=== PATIENT | female | born 2000 | race American Indian/Alaskan Native ===

== ENCOUNTER 2018-05-30 01:12 | Outpatient (CLI) | payer MEDICAID ==
[2018-05-30 02:03] VITALS: BP 127/85
== END 2018-05-30 02:29 | disposition home or self-care (01) ==
LOC: TRG 01:12
PROVIDERS: ATTEND Obstetrics & Gynecology
DX: O47.1 False labor at or after 37 completed weeks of gestation (principal); Z3A.40 40 weeks gestation of pregnancy; Z82.49 Family history of ischemic heart disease and other diseases of the circulatory system
CPT/HCPCS: 59025

== ENCOUNTER 2018-06-03 20:52 | Outpatient (CLI) | payer MEDICAID ==
[2018-06-03 22:55] LABS: Bacteria,Urine 1+ /HPF (Negative); Bilirubin,Urine NEG (Negative); Blood,Urine NEG (Negative); Color,Urine Straw (Yellow); Protein,Urine <15 mg/dL mg/dL (Negative); Urobilinogen,Urine < 2.0 mg/dL (<2.0)
[2018-06-04] MEDS ORDERED: ATARAX PO ONE (00:09)
[2018-06-04] MEDS ORDERED: VISTARIL PO ONE (00:20)
[2018-06-05 10:22] VITALS: BP 141/81
== END 2018-06-04 00:30 | disposition home or self-care (01) ==
LOC: TRG 20:52
PROVIDERS: ATTEND Obstetrics & Gynecology
DX: O62.9 Abnormality of forces of labor, unspecified (principal); Z3A.40 40 weeks gestation of pregnancy
CPT/HCPCS: 59025; 81001; Q0177

== ENCOUNTER 2018-06-05 06:43 | Inpatient (IN) | payer MEDICAID ==
[2018-06-05] MEDS ORDERED: LACTATED RINGERS 1,000 ML IV SCH (08:00)
[2018-06-05] MEDS ORDERED: POLYCILLIN/NS 2 GM/100 ML 2 GM/100 ML BAG IV NR (08:00)
[2018-06-05] MEDS ORDERED: STADOL IV PRN (08:00)
--- NOTE | 2018-06-05 08:14 | History and Physical Report ---
History of Present Illness Date of examination: 06/05/18 Date of admission: 06/05/18 07:28 History of present illness: 18 yo LMP EDC 05/30/18 @ 40.6 weeks gestation presented to triage active labor. First trimester entry at 12 weeks gestation. Uncomplicated course. GBS positive. Past History Past Medical History: no pertinent history Past Surgical History: no surgical history REGISTERED RADIOLOGIC TECHNOLOGIST History: hepatitis C Family/Genetic History: hypertension, stroke Social history: no significant social history, single - Obstetrical History Expected Date of Delivery: 05/30/18 Actual Gestation: 40 Week(s) 6 Day(s) : 2 Para: 0 Number of Living Children: 1 Medications and Allergies Allergies Allergy/AdvReac Type Severity Reaction Status Date / Time No Known Allergies Allergy Verified 06/04/18 00:14 Home Medications Medication Instructions Recorded Confirmed Last Taken Type No Known Home Medications [No 05/30/18 06/05/18 Unknown History Reported Home Medications] Active Meds: Active Medications Butorphanol Tartrate (Stadol) 2 mg IV Q2H PRN PRN Reason: Labor Pain Ampicillin Sodium (Polycillin/Ns 2 Gm/100 Ml) 2 gm in 100 mls @ 100 mls/hr IV ONCE NR Stop: 06/05/18 10:00 Lactated Ringer's (Lactated Ringers) 1,000 mls @ 125 mls/hr IV DIRECT GARRET Ampicillin Sodium (Ampicillin/Ns 1 Gm/50 Ml) 1 gm in 50 mls @ 100 mls/hr IV Q4H GARRET; Protocol Review of Systems All systems: negative - Vital Signs Vital signs: Vital Signs Pulse Pulse Ox 85 100 06/05/18 06:57 06/05/18 06:57 Temp Pulse Resp BP Pulse Ox 98.4 F 83 18 135/88 99 06/05/18 07:20 06/05/18 07:54 06/05/18 07:20 06/05/18 07:53 06/05/18 07:54 - Obstetrical FHR: category 1 Uterine Contraction Monitor Mode: External Results Result Diagrams: 06/05/18 08:00 06/05/18 08:00 All other labs normal. Assessment and Plan A: IUP @ 40.6 weeks Active Labor GBS positive Elevated BP's R/O PIH P: Abx Active yonas't
[2018-06-05 08:24] LABS: Hematocrit 40.5 % (30.3-42.9); Hemoglobin 13.6 gm/dl (10.1-14.3); Mean Corpuscular HGB Conc 34 % (30-34); Mean Corpuscular Hemoglobin 31 pg (28-32); Mean Corpuscular Volume 92 fl (79-97); Platelet Count 287 K/mm3 (140-440); Red Cell Distribution Width 13.7 % (13.2-15.2)
[2018-06-05 08:52] LABS: Bilirubin,Urine NEG (Negative); Blood,Urine NEG (Negative); Color,Urine Yellow (Yellow); Mucus,Urine FEW /HPF
[2018-06-05] MEDS ORDERED: PITOCin/NS 30 UNIT/500ML 30 UNITS/500 ML BAG IV SCH (09:00)
[2018-06-05 09:05] LABS: Alanine Aminotransferase 8 units/L (7-56); Uric Acid 3.6 mg/dL (3.5-7.6)
--- NOTE | 2018-06-05 09:54 | Anesthesia Consultation ---
Anesthesia Consult and Med Hx Date of service: 06/05/18 - Airway Anesthetic Teeth Evaluation: Good ROM Head & Neck: Adequate Mental/Hyoid Distance: Adequate Mallampati Class: Class II Intubation Access Assessment: Probably Good - Pre-Operative Health Status ASA Pre-Surgery Classification: ASA2 Proposed Anesthetic Plan: Epidural, Spinal - Pulmonary Hx Asthma: No COPD: No Hx Pneumonia: No - Cardiovascular System Hx Hypertension: No - Central Nervous System Hx Seizures: No Hx Psychiatric Problems: No - Endocrine Hx Renal Disease: No Hx End Stage Renal Disease: No Hx Hypothyroidism: No Hx Hyperthyroidism: No - Hematic Hx Anemia: No Hx Sickle Cell Disease: No - Other Systems Hx Alcohol Use: No
[2018-06-05] MEDS ORDERED: NARCAN 2 MG/2 ML IV PRN (10:00)
[2018-06-05] MEDS ORDERED: fentaNYL-BUPIV 2 MCG/ML-0.125% 200 MCG/100 ML BAG EPIDURAL SCH (10:00)
[2018-06-05] MEDS ORDERED: ePHEDrine SULFATE IV PRN (10:00)
[2018-06-05] MEDS ORDERED: PITOCin/NS 20 UNIT/1000ML DRIP 20,000 MILLIUNITS/1,000 ML BAG IV ONE (10:21)
[2018-06-05] MEDS ORDERED: PITOCin/NS 20 UNIT/1000ML DRIP 20 UNITS/1,000 ML BAG IV SCH (11:00)
[2018-06-05] MEDS ORDERED: AMPICILLIN/NS 1 GM/50 ML 1 GM/50 ML BAG IV SCH (12:00)
[2018-06-05] MEDS ORDERED: LANSINOH TP PRN (12:38)
[2018-06-05] MEDS ORDERED: TUCKS PAD TP PRN (12:38)
[2018-06-05] MEDS ORDERED: TYLENOL PO PRN (12:38)
[2018-06-05] MEDS ORDERED: PHENERGAN PR PRN (12:38)
[2018-06-05] MEDS ORDERED: PHENERGAN PO PRN (12:38)
[2018-06-05] MEDS ORDERED: BENADRYL PO PRN (12:38)
[2018-06-05] MEDS ORDERED: DULCOLAX PR PRN (12:38)
[2018-06-05] MEDS ORDERED: NORCO 5/325 PO PRN (12:38)
[2018-06-05] MEDS ORDERED: MILK OF MAGNESIA PO PRN (12:38)
--- NOTE | 2018-06-05 12:38 | Procedure Note ---
OB Delivery Note - Delivery Date of Delivery: 06/05/18 (5-15 oz male @ 1216) Surgeon: ALESSANDRO PANCHAL Estimated blood loss: <100cc - Vaginal Delivery presentation: vertex Delivery position: OA Intrapartum events: none Delivery induction: none Delivery monitor: external FHT, external uterine Route of delivery: Delivery placenta: spontaneous Delivery cord: 3 umbilical vessels Episiotomy: none Delivery laceration: none Anesthesia: epidural - Infant A at 1 minute: 8 at 5 minutes: 9 Infant Gender: Male (SROM-meconium fluid. NICU called for delivery. Pushed for viable male. Spont. cry, bulb suctioned and placed skin to skin. GBS positive and adequate treatment. Spont. placenta. Pitocin infusing, fundus firm. bleeding scant. EBL 100cc. no lacerations.)
[2018-06-05] MEDS ORDERED: SODIUM CHLORIDE FLUSH SYRINGE 10 ML IV NR (13:00)
[2018-06-05] MEDS ORDERED: APRESOLINE IV PRN (14:21)
[2018-06-05] MEDS ORDERED: MAGNESIUM SULFATE 4GM/100ML 4 GM/100 ML BAG IV ONE (15:00)
[2018-06-05] MEDS ORDERED: MAGNESIUM SULFATE 40GM/1000ML 40 GM/1,000 ML BAG IV SCH (15:00)
[2018-06-05] MEDS: MOTRIN PO SCH (23:00)
[2018-06-05 23:13] LABS: Hematocrit 39.6 % (30.3-42.9); Hemoglobin 12.9 gm/dl (10.1-14.3); Mean Corpuscular HGB Conc 33 % (30-34); Mean Corpuscular Hemoglobin 30 pg (28-32); Mean Corpuscular Volume 92 fl (79-97); Platelet Count 317 K/mm3 (140-440); Red Cell Distribution Width 13.9 % (13.2-15.2)
[2018-06-05 23:29] LABS: Bilirubin,Urine NEG (Negative); Blood,Urine NEG (Negative); Color,Urine Straw (Yellow); Mucus,Urine FEW /HPF; Protein,Urine <15 mg/dL mg/dL (Negative); Urobilinogen,Urine < 2.0 mg/dL (<2.0)
[2018-06-06 00:43] LABS: Alanine Aminotransferase 8 units/L (7-56)
[2018-06-06] MEDS: MOTRIN PO SCH ×2 (04:23→18:28)
[2018-06-06] MEDS ORDERED: NACL 0.9% 1000 ML 1,000 ML IV SCH (05:00)
--- NOTE | 2018-06-06 08:40 | Progress Note ---
Assessment and Plan O: VSS AF Magnesium infusing at 2gm/hr [place] present/patent A: Stable PP Day 1 Preeclampsia P: continue order Subjective - Subjective Date of service: 06/06/18 Interval history: 18 yo LMP EDC 05/30/18 @ 40.6 weeks gestation presented to triage active labor. First trimester entry at 12 weeks gestation. Uncomplicated course. GBS positive. Patient reports: appetite normal, voiding normally, pain well controlled, flatus , ambulating normally, other (Denies BLAKE blurred vision or epigstric pain) [place]: doing well Objective - Vital Signs Latest vital signs: Vital Signs Temp Pulse Resp BP BP Pulse Ox 06/06/18 04:23 18 06/06/18 00:10 97.4 F L 80 20 124/91 100 06/05/18 23:00 18 06/05/18 22:35 99 H 136/78 100 06/05/18 20:28 98.1 F 89 18 130/86 100 06/05/18 18:54 98.5 F 102 H 20 139/77 99 06/05/18 18:08 86 130/82 06/05/18 17:53 98 H 127/79 06/05/18 17:38 102 H 131/81 06/05/18 17:23 96 H 130/71 06/05/18 17:08 85 128/72 06/05/18 16:53 78 139/80 06/05/18 16:38 76 137/79 06/05/18 16:23 85 137/75 06/05/18 15:58 64 180/87 06/05/18 15:56 64 180/87 06/05/18 15:46 63 156/91 06/05/18 15:38 69 132/89 06/05/18 15:23 61 171/96 06/05/18 15:08 56 L 176/104 06/05/18 14:54 64 150/92 06/05/18 14:38 55 L 187/115 06/05/18 14:23 54 L 179/113 06/05/18 13:43 69 99 06/05/18 13:38 62 100 06/05/18 13:33 58 L 100 06/05/18 13:30 57 L 154/93 06/05/18 13:28 59 L 100 06/05/18 13:23 63 100 06/05/18 13:18 58 L 100 06/05/18 13:15 57 L 179/111 06/05/18 13:13 57 L 100 06/05/18 13:08 59 L 100 06/05/18 13:03 64 100 06/05/18 13:00 64 121/91 06/05/18 12:58 65 100 06/05/18 12:53 63 100 06/05/18 12:48 62 100 06/05/18 12:43 58 L 100 06/05/18 12:42 60 144/99 06/05/18 12:38 57 L 100 06/05/18 12:32 75 99 06/05/18 12:27 75 93 06/05/18 12:22 81 100 06/05/18 12:17 72 100 06/05/18 12:13 65 132/78 06/05/18 12:12 64 99 06/05/18 12:07 74 100 06/05/18 12:02 70 99 06/05/18 12:01 63 128/75 06/05/18 11:57 66 100 06/05/18 11:52 67 100 06/05/18 11:50 61 153/87 06/05/18 11:47 70 99 06/05/18 11:42 62 139/81 99 06/05/18 11:37 67 99 06/05/18 11:32 69 100 06/05/18 11:27 67 100 06/05/18 11:22 69 99 06/05/18 11:17 71 100 06/05/18 11:12 63 147/87 99 06/05/18 11:07 71 100 06/05/18 11:02 68 100 06/05/18 10:57 78 100 06/05/18 10:52 74 100 06/05/18 10:47 77 100 06/05/18 10:42 75 100 06/05/18 10:40 67 137/74 06/05/18 10:37 83 99 06/05/18 10:34 68 140/80 06/05/18 10:32 77 98 06/05/18 10:30 70 136/76 06/05/18 09:23 18 06/05/18 08:53 18 Intake and Output 06/05/18 06/06/18 06/06/18 22:59 06:59 14:59 Output Total 2500 Balance -2500 Output: Urine 2500 Indwelling Catheter 2500 Other: Total, Output Amount 2500 - Exam Breasts: Present: deferred Abdomen: Present: normal appearance, soft. Absent: distention, tenderness Uterus: Present: normal, firm. Absent: bogginess, fundal height below umbilicus - Labs Labs: Abnormal lab results 06/05/18 06/05/18 06/05/18 Range/Units 08:00 18:41 22:51 WBC 11.5 H (4.5-11.0) K/mm3 Creatinine 0.4 L (0.7-1.2) mg/dL Uric Acid (3.5-7.6) mg/dL Magnesium 3.80 H (1.7-2.3) mg/dL Lactate Dehydrogenase 249 H (91-180) units/L Urine pH (5.0-7.0) Urine WBC (Auto) (0.0-6.0) /HPF 06/05/18 06/05/18 06/05/18 Range/Units 22:51 23:00 Unknown WBC (4.5-11.0) K/mm3 Creatinine 0.3 L (0.7-1.2) mg/dL Uric Acid 3.0 L (3.5-7.6) mg/dL Magnesium (1.7-2.3) mg/dL Lactate Dehydrogenase 335 H (91-180) units/L Urine pH 9.0 H (5.0-7.0) Urine WBC (Auto) 9.0 H (0.0-6.0) /HPF
[2018-06-06] MEDS: PRENATAL VITAMIN PO SCH (10:49)
[2018-06-07] MEDS: MOTRIN PO SCH ×2 (01:35→07:05)
--- NOTE | 2018-06-07 08:05 | Progress Note ---
Assessment and Plan A/P PPD#2 s/p , Pree BP normal ambulating well BP within normal range UTI : macrobid implemented P[place]; s/p mag evaluate today with discharge tomorrow f/u in clinic in 1 week for BP check Subjective - Subjective Date of service: 06/07/18 Principal diagnosis: s/p , pree Patient reports: appetite normal, voiding normally, pain well controlled, flatus , ambulating normally : doing well Objective - Vital Signs Latest vital signs: Vital Signs Temp Pulse Resp BP BP Pulse Ox 06/07/18 00:32 98.1 F 99 H 20 123/81 99 06/06/18 18:28 20 06/06/18 16:00 98.7 F 77 16 114/76 06/06/18 12:15 98.7 F 77 18 121/78 06/06/18 10:49 20 Intake and Output 06/06/18 06/07/18 06/07/18 23:59 07:59 15:59 Intake Total 240 240 Output Total 400 500 Balance -160 -260 Intake: Oral 240 240 Output: Urine 400 500 Void 400 500 Other: Total, Intake Amount 240 240 Total, Output Amount 400 500 # Voids Indwelling Catheter 2 - Exam Breasts: Present: normal Cardiovascular: Present: Regular rate, Normal S1 Lungs: Present: Clear to auscultation, Normal air movement Abdomen: Present: normal appearance, soft, normal bowel sounds. Absent: distention, tenderness, guarding Vulva: both: normal Uterus: Present: normal, firm, fundal height below umbilicus. Absent: bogginess , tenderness Extremities: Present: normal Deep Tendon Reflex Grade: Normal +2 - Labs Labs: Abnormal lab results 06/06/18 Range/Units 11:33 Magnesium 4.50 H (1.7-2.3) mg/dL
[2018-06-07] MEDS ORDERED: MACROBID PO SCH (10:00)
[2018-06-07] MEDS: PRENATAL VITAMIN PO SCH (10:23)
[2018-06-07 17:13] VITALS: BP 127/77
--- NOTE | 2018-06-07 17:16 | Event Note ---
Date: 06/07/18 patient with normal BP. Asymprotmatic. will d/c home with f/u in 1 week
--- NOTE | 2018-06-07 17:17 | Discharge Summary ---
Providers - Providers Date of Admission: 06/05/18 07:28 Date of discharge: 06/07/18 Attending physician: KEYANNA ESTRADA MD Primary care physician: KEYANNA ESTRADA MD Hospitalization Reason for admission: induction of labor Delivery: Episiotomy: none Laceration: none complications: other (preeclampsia) Discharge diagnosis: IUP at term delivered [place] baby: male Condition at discharge: Good Disposition: DC-01 TO HOME OR SELFCARE Plan - Discharge Medications Prescriptions: Ibuprofen [Motrin] 600 mg PO Q8H PRN #30 tablet PRN Reason: Pain oxyCODONE /ACETAMINOPHEN [Percocet 5/325] 1 tab PO Q6HR PRN #30 tablet PRN Reason: Pain - Provider Discharge Summary Activity: routine, no sex for 6 weeks, no strenuous exercise Diet: routine Instructions: routine Additional instructions: [] Smoking cessation referral if applicable(refer to patient education folder for contact #) [] Refer to [facility] Booklet Call your doctor immediately for: * Fever > 100.5 * Heavy vaginal bleeding ( >1 pad per hour) * Severe persistent headache * Shortness of breath * Reddened, hot, painful area to leg or breast * Drainage or odor from incision. * Keep incision clean and dry at all times and follow doctor's instructions regarding bathing/showering - Follow up plan Follow up: KEYANNA ESTRADA MD [Primary Care Provider] - 7 Days
== END 2018-06-07 19:05 | disposition home or self-care (01) | DRG 774 ==
LOC: TRG 06:43 → LD 07:28 → OB 18:38
PROVIDERS: ADMIT Obstetrics & Gynecology; ATTEND Obstetrics & Gynecology
PROC: 10E0XZZ Delivery of Products of Conception, External Approach (ICD-10-PCS; principal; 2018-06-05)
PROC: 3E0R3BZ Introduction of Anesthetic Agent into Spinal Canal, Percutaneous Approach (ICD-10-PCS; 2018-06-05)
PROC: 00HU33Z Insertion of Infusion Device into Spinal Canal, Percutaneous Approach (ICD-10-PCS; 2018-06-05)
DX: O99.824 Streptococcus B carrier state complicating childbirth (principal); O14.94 Unspecified pre-eclampsia, complicating childbirth; Z3A.40 40 weeks gestation of pregnancy; Z37.0 Single live birth; Z82.3 Family history of stroke; Z82.49 Family history of ischemic heart disease and other diseases of the circulatory system; O77.0 Labor and delivery complicated by meconium in amniotic fluid; O75.3 Other infection during labor
CPT/HCPCS: 36415; 81001; 82565; 83615; 83735; 84450; 84460; 84550; 85027; 86592; 86850; 86900; 86901; J0290; J0360; J0595; J2590; J3475; J7030; J7120; Q0169